=== PATIENT | male | born 1965 | race Hispanic/Latino ===

== ENCOUNTER 2018-05-31 15:48 | Emergency (ER) | payer SELFPAY ==
[2018-05-31 16:02] VITALS: BP 164/81
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
--- NOTE | 2018-05-31 21:31 | XRay Report ---
FINAL REPORT EXAM: XR SPINE LUMBOSACRAL 2-3V HISTORY: low back pain TECHNIQUE: 3 views of the lumbar spine PRIORS: None. FINDINGS: The lumbar vertebral bodies are normal in height. There is 2 mm of retrolisthesis of L1 on L2, 1 mm o f retrolisthesis of L2 on L3, 3 mm of retrolisthesis of L3 on L4 and 3 mm of retrolisthesis of L4 on L5. There is mild loss of disc height and endplate sclerosis and osteophyte formation at L2-3. There is moderate loss of disc height and endplate sclerosis with osteophyte formation at L3-4. There is se meaghan loss of disc height and endplate sclerosis and osteophyte formation at L5-S1. The soft tissues a re unremarkable. IMPRESSION: Multilevel degenerative disc disease
--- NOTE | 2018-05-31 21:33 | XRay Report ---
FINAL REPORT EXAM: XR SPINE CERVICAL 2-3V HISTORY: neck pain TECHNIQUE: 3 views of the cervical spine PRIORS: None. FINDINGS: The vertebral bodies are normal in height. There is 4 mm of anterolisthesis of C3 on C4. There is mil d loss of disc height and anterior osteophyte formation at C4-5. There is moderate to severe loss of disc height at C5-6 with a large anterior osteophyte. There is an anterior osteophyte at C6-7. There is no evidence of fracture or subluxation. The soft tissues are unremarkable. IMPRESSION: Multilevel degenerative disc disease
--- NOTE | 2018-05-31 21:36 | XRay Report ---
FINAL REPORT EXAM: XR SHOULDER 2+V RT HISTORY: right shoulder pain TECHNIQUE: 3 views of the right shoulder PRIORS: None. FINDINGS: The glenohumeral and acromioclavicular joints are normally aligned. There is mild superior and inferi or osteophyte formation of the acromioclavicular joint. The bones are normally mineralized. The soft tissues are unremarkable. IMPRESSION: Normal right shoulder.
== END 2018-05-31 22:08 | disposition home or self-care (01) ==
LOC: ED 15:48
DX: M54.2 Cervicalgia (principal); M54.5 Low back pain; M25.511 Pain in right shoulder; K62.5 Hemorrhage of anus and rectum; I10 Essential (primary) hypertension; F41.9 Anxiety disorder, unspecified; F32.9 Major depressive disorder, single episode, unspecified; E78.00 Pure hypercholesterolemia, unspecified; F17.200 Nicotine dependence, unspecified, uncomplicated; Z88.5 Allergy status to narcotic agent; V89.2XXA Person injured in unspecified motor-vehicle accident, traffic, initial encounter; Y93.89 Activity, other specified; Y92.488 Other paved roadways as the place of occurrence of the external cause; Y99.8 Other external cause status
CPT/HCPCS: 72040; 72100; 99283